=== PATIENT | female | born 1950 | race Caucasian/White ===

== ENCOUNTER 2016-07-16 20:34 | Observation (INO) | payer MEDICARE, OTHER ==
[~2016-07-16] VITALS: Ht 167.6 cm; Wt 56.5 kg
[~2016-07-16 20:34] MED LIST: CITA20TA4 PO; PARO20TA PO; SULF200S24 PO; TRIA0.02 TOP
[2016-07-16 20:40] VITALS: BP 136/72; PULSE 108; RESP 18; TEMP 99.6; O2SAT 96
[2016-07-16] MEDS ORDERED: LINA145C PO (20:52)
[2016-07-16] MEDS ORDERED: CLIN1CAP6 PO (20:52)
[2016-07-16] MEDS ORDERED: TRAZ50TA12 PO (20:52)
[2016-07-16] MEDS ORDERED: SODIUM CHLOR 0.9% 1000 ML INJ 1,000 ML IV SCH (21:06)
[2016-07-16] MEDS ORDERED: SODIUM CHLORIDE 0.9% FLUSH 5 ML FLUSH IVF PRN (21:15)
--- NOTE | 2016-07-16 21:30 | PD ---
HPI Chief Complaint: Altered Mental Status Time Seen by Provider: 20:41 Travel History International Travel<30 days: No Contact w/Intl Traveler<30days: No Traveled to known affect area: No History of Present Illness HPI Patient 66-year-old female presents emergency department by E [facility] for acute on chronic altered mental status. 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 According to family members patient was found bent over at the waist lying on her bed with her feet on the floor which is unusual for her. Apparently after that she was crawling around on all fours on the ground. Family is concerned because she has been having some constipation and some blood in the stools when she has bowel movements which causing the pain. They've also noticed an increased swelling of the right jaw. Patient is also been having some mild weight loss over the past 6 months or so. They have been following her primary care physician Dr. Solorio ordered a CAT scan of the head was they are unaware of the results of at this time. According to family members the patient is now at baseline mental status where she is nitrate and oriented to herself highly tangential. No fevers no abdominal pain was reported. Patient apparently has not had a bowel movement in about a week. PFSH Past Medical History Medical History: Unable to Obtain Arthritis: No Asthma: No Autoimmune Disease: No Anxiety: Yes Heart Rhythm Problems: No Cancer: Yes (colon, tonsil w/ lymph nodes) Cardiovascular Problems: No High Cholesterol: No Chemotherapy: Yes (15 YEARS AGO) Chest Pain: No Congestive Heart Failure: No COPD: No Cerebrovascular Accident: No Dementia: Yes (secondary to cancer treatment) Diabetes: No Diminished Hearing: No Endocrine: No GERD: No Genitourinary: No Headaches: Yes Hiatal Hernia: No Immune Disorder: No Kidney Stones: No Musculoskeletal: No Neurologic: Yes Psychiatric: Yes Reproductive: No Respiratory: No Migraines: Yes Radiation Therapy: Yes (13 years ago) Renal Failure: No Seizures: No Sickle Cell Disease: No Sleep Apnea: No Thyroid Disease: No Ulcer: No Past Surgical History Surgical History: Unable to Obtain Abdominal Surgery: Yes (colon resection secondary to cancer) AICD: No Arteriovenous Shunt: No Cardiac Surgery: No Ear Surgery: No Endocrine Surgery: No Eye Surgery: No Genitourinary Surgery: No Gynecologic Surgery: No Hysterectomy: Yes Insulin Pump: No Joint Replacement: No Oral Surgery: Yes (radical toncilectomy due ca.) Pacemaker: No Thoracic Surgery: No Tonsillectomy: Yes (radical removal secondary to cancer RIGHT) Other Surgery: Yes Social History Alcohol Use: Yes (occasional) Tobacco Use: No (quit ) Substance Use: No Allergies-Medications (Allergen,Severity, Reaction): Coded Allergies: Penicillin (Unverified Allergy, Unknown, 09/05/15) Reported Meds & Prescriptions Reported Meds & Active Scripts Active Reported Linzess (Linaclotide) 145 Mcg Cap 145 Mcg PO DAILY Clindamycin (Clindamycin HCl) 300 Mg Cap 300 Mg PO BID Trazodone (Trazodone HCl) 50 Mg Tab 50 Mg PO HS Review of Systems Except as stated in HPI: all other systems reviewed are Neg Physical Exam Narrative GENERAL: Well-developed well-nourished no apparent distress, pleasantly confused. SKIN: Warm and dry. HEAD: Atraumatic. Normocephalic. EYES: Pupils equal and round. No scleral icterus. No injection or drainage. ENT: No nasal bleeding or discharge. Mucous membranes pink and moist. There is some swelling to the right jaw line over the parotid gland. Nontender no overlying cellulitis, no fluctuance. NECK: Trachea midline. No JVD. CARDIOVASCULAR: Regular rate and rhythm. No murmur appreciated. RESPIRATORY: No accessory muscle use. Clear to auscultation. Breath sounds equal bilaterally. GASTROINTESTINAL: Abdomen soft, non-tender, nondistended. Hepatic and splenic margins not palpable. Rectal exam: Performed with female nurse nurse sitter at all times. Patient has a very high fecal impaction which was barely palpable for me. I have broken up the impaction is much as I can digitally but very little is able to be removed. Fecal occult is positive. No gross blood and no gross melena. MUSCULOSKELETAL: No obvious deformities. No clubbing. No cyanosis. No edema. NEUROLOGICAL: Awake and alert. Highly tangential speech, does follow commands in all 4 extremities. No obvious cranial nerve deficits. Motor grossly within normal limits. On asking orientation questions patient changes subject rapidly. She is GCS of 14 for confused response. PSYCHIATRIC: Pleasantly confused. Unable to assess further at this time. Data Data Last Documented VS Vital Signs Date Time Temp Pulse Resp B/P Pulse Ox O2 Delivery O2 Flow Rate FiO2 07/16/16 23:03 86 18 139/86 97 Room Air 07/16/16 20:40 99.6 Orders Electrocardiogram (07/16/16 ) Ammonia (07/16/16 21:06) Complete Blood Count With Diff (07/16/16 21:06) Comprehensive Metabolic Panel (07/16/16 21:06) Creatine Kinase (Cpk) (07/16/16 21:06) Prothrombin Time / Inr (Pt) (07/16/16 21:06) Act Partial Throm Time (Ptt) (07/16/16 21:06) Urinalysis - C+S If Indicated (07/16/16 21:06) Chest, Single Ap (07/16/16 21:06) Ct Brain W/O Iv Contrast(Rout) (07/16/16 21:06) Blood Glucose (07/16/16 21:) Ecg Monitoring (07/16/16 21:06) Iv Access Insert/Monitor (07/16/16 21:06) Oximetry (07/16/16 21:06) Sodium Chloride 0.9% Flush (Ns Flush) (07/16/16 21:15) Sodium Chlor 0.9% 1000 Ml Inj (Ns 1000 M (07/16/16 21:06) Cath For Specimen (07/16/16 21:06) CKMB (07/16/16:) CKMB% (07/16/16:) Ct Abd/Pel W Iv Contrast(Rout) (07/16/16 ) Iohexol 350 Inj (Omnipaque 350 Inj) (07/17/16 00:43) Admit Order (Ed Use Only) (07/17/16 ) Labs Laboratory Tests Test 07/16/16:17 White Blood Count 6.6 TH/MM3 Red Blood Count 4.62 MIL/MM3 Hemoglobin 13.0 GM/DL Hematocrit 38.7 % Mean Corpuscular Volume 83.8 FL Mean Corpuscular Hemoglobin 28.2 PG Mean Corpuscular Hemoglobin 33.7 % Concent Red Cell Distribution Width 14.7 % Platelet Count 268 TH/MM3 Mean Platelet Volume 9.8 FL Neutrophils (%) (Auto) 77.2 % Lymphocytes (%) (Auto) 16.1 % Monocytes (%) (Auto) 6.1 % Eosinophils (%) (Auto) 0.1 % Basophils (%) (Auto) 0.5 % Neutrophils # (Auto) 5.1 TH/MM3 Lymphocytes # (Auto) 1.1 TH/MM3 Monocytes # (Auto) 0.4 TH/MM3 Eosinophils # (Auto) 0.0 TH/MM3 Basophils # (Auto) 0.0 TH/MM3 CBC Comment DIFF FINAL Differential Comment Prothrombin Time 11.0 SEC Prothromb Time International 1.0 RATIO Ratio Activated Partial 28.5 SEC Thromboplast Time Urine Color YELLOW Urine Turbidity HAZY Urine pH 6.0 Urine Specific [place] 1.027 Urine Protein 30 mg/dL Urine Glucose (UA) NEG mg/dL Urine Ketones 150 mg/dL Urine Occult Blood TRACE Urine Nitrite NEG Urine Bilirubin NEG Urine Urobilinogen 2.0 MG/DL Urine Leukocyte Esterase NEG Urine RBC 6 /hpf Urine WBC 1 /hpf Urine Hyaline Casts 3 /lpf Urine Mucus MOD /lpf Microscopic Urinalysis Comment CATH-CULT NOT IND Sodium Level 138 MEQ/L Potassium Level 3.6 MEQ/L Chloride Level 102 MEQ/L Carbon Dioxide Level 25.0 MEQ/L Anion Gap 11 MEQ/L Blood Urea Nitrogen 6 MG/DL Creatinine 0.67 MG/DL Estimat Glomerular Filtration 88 ML/MIN Rate Random Glucose 116 MG/DL Calcium Level 8.7 MG/DL Total Bilirubin 0.5 MG/DL Aspartate Amino Transf 31 U/L (AST/SGOT) Alanine Aminotransferase 29 U/L (ALT/SGPT) Alkaline Phosphatase 74 U/L Ammonia 16 MCMOL/L Total Creatine Kinase 636 U/L Creatine Kinase MB 10.8 NG/ML Creatine Kinase MB % 1.7 % Total Protein 7.0 GM/DL Albumin 3.5 GM/DL [facility] Medical Decision Making Medical Screen Exam Complete: Yes Emergency Medical Condition: Yes Interpretation(s) EKG shows normal sinus rhythm normal axis normal R-wave progression. Limited interpretation of STT segments secondary to motion artifact over no obvious STT segment changes are seen. Is a borderline EKG. Differential Diagnosis GI bleeding, altered mental status, urinary tract infection, pneumonia, electrolyte abnormality, intracranial injury. Narrative Course Patient was roomed in the emergency department, she appears well and in no apparent distress. Has notable findings of her right jaw swelling which is increased over the past few months, also GI bleeding but H&H is within normal limits. UA is negative, chest x-ray negative. Patient at this time is at baseline mental status. Her symptoms of leaning over the bed could be attributed to her constipation but is not definitive. 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 No evidence of acute infarct, hemorrhage, mass or edema. Shar Mendosa MD Chest X-Ray 07/16/162105 Signed Impressions: Service Date/Time: Saturday, July 16, 2016 21:39 - CONCLUSION: No acute disease. Shar Mendosa MD Abdomen/Pelvis CT 07/16/16 0000 Signed Impressions: Service Date/Time: Sunday, July 17, 2016 00:40 - CONCLUSION: No acute CT findings in the abdomen or pelvis. Jasbir Sheikh MD Discuss results with the patient's family and they are very reluctant to take the patient home. Discussed with her GI bleeding which suggests observation status returning of H&H's and they're agreeable this time. Diagnosis Primary Impression: Altered mental status, unspecified Additional Impression: GI bleeding Admitting Information Admitting Physician Requests: Observation Condition: Stable Estuardo De La O MD Jul 16, 2016 21:30
--- NOTE | 2016-07-16 21:38 | RADRPT ---
EXAM DATE/TIME: 07/16/2016 21:21 [facility] COMPARISON: CT BRAIN W/O CONTRAST, September 05, 2015, 19:14. INDICATIONS : Altered mental status. RADIATION DOSE: 56.35 CTDIvol (mGy) MEDICAL HISTORY : Carcinoma, colon. Carcinoma, tonsillar. SURGICAL HISTORY : Colon resection. Tonsillectomy. ENCOUNTER: Initial ACUITY: 1 day PAIN SCALE: Non-responsive LOCATION: cranial TECHNIQUE: Multiple contiguous axial images were obtained of the head. Using automated exposure control and adj ustment of the mA and/or kV according to patient size, radiation dose was kept as low as reasonably a chievable to obtain optimal diagnostic quality images. FINDINGS: CEREBRUM: The ventricles are normal for age. No evidence of midline shift, mass lesion, hemorrhage or acute in farction. No extra-axial fluid collections are seen. POSTERIOR FOSSA: The cerebellum and brainstem are intact. The 4th ventricle is midline. The cerebellopontine angle i s unremarkable. EXTRACRANIAL: A calcified mass is identified along the angle and body of the right mandible. SKULL: The calvaria is intact. No evidence of skull fracture. 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 No evidence of acute infarct, hemorrhage, mass or edema. Shar Mendosa MD on July 16, 2016 at 21:32 Board Certified Radiologist. This report was verified electronically.
[2016-07-16 21:49] LABS: AUTOMATED NEUTROPHIL # 5.1 TH/MM3 (1.8-7.7); BASOPHIL % 0.5 % (0.0-2.0); EOSINOPHIL % 0.1 % (0.0-4.0); HEMATOCRIT 38.7 % (35.0-46.0); HEMO FLAGS DIFF FINAL; LYMPH % 16.1 % (9.0-44.0); LYMPHOCYTE # 1.1 TH/MM3 (1.0-4.8); MEAN CELL VOLUME 83.8 FL (80.0-100.0); MEAN CORPUSCULAR HEMOGLOBIN 28.2 PG (27.0-34.0); MEAN CORPUSCULAR HGB CONC 33.7 % (32.0-36.0); MONO % 6.1 % (0.0-8.0); NEUT % 77.2 % (16.0-70.0); PLATELET COUNT 268 TH/MM3 (150-450); RED BLOOD COUNT 4.62 MIL/MM3 (4.00-5.30); RED CELL DISTRIBUTION WIDTH 14.7 % (11.6-17.2); WHITE BLOOD COUNT 6.6 TH/MM3 (4.0-11.0)
[2016-07-16 21:51] LABS: BLOOD, URINE TRACE (NEG); GLUCOSE,URINE NEG (NEG); HYALINE CAST, URINE 3 /lpf (RARE); KETONE, URINE 150 mg/dL (NEG); MUCUS URINE MOD /lpf (OCC); NITRITE,URINE NEG (NEG); URINE COLOR YELLOW (YELLW/STRAW)
[2016-07-16 21:52] LABS: COMMENT (UR) CATH-CULT NOT IND; CULTURE IF INDICATED CATH CULTURE NOT IND
[2016-07-16 22:02] LABS: APTT (PATIENT) 28.5 SEC (24.3-30.1)
--- NOTE | 2016-07-16 22:05 | RADRPT ---
EXAM DATE/TIME: 07/16/2016 21:39 [facility] COMPARISON: CHEST SINGLE AP, November 16, 2014, 23:39. INDICATIONS : Shortness of breath. MEDICAL HISTORY : Unobtainable. SURGICAL HISTORY : Unobtainable. ENCOUNTER: Initial ACUITY: 1 day PAIN SCORE: 0/10 LOCATION: Bilateral chest FINDINGS: A single view of the chest demonstrates the lungs to be symmetrically aerated without evidence of mas s, infiltrate or effusion. The cardiomediastinal contours are unremarkable. Osseous structures are intact. CONCLUSION: No acute disease. Shar Mendosa MD on July 16, 2016 at 22:03 Board Certified Radiologist. This report was verified electronically.
[2016-07-16 22:09] LABS: ANION GAP 11 MEQ/L (5-15); AST (GOT) 31 U/L (15-37); BLOOD UREA NITROGEN 6 MG/DL (7-18); CHLORIDE 102 MEQ/L (98-107); GLOMERULAR FILTRATION RATE 88 ML/MIN (>89); POTASSIUM 3.6 MEQ/L (3.5-5.1); SODIUM (NA) 138 MEQ/L (136-145)
[2016-07-16 22:13] LABS: ALKALINE PHOSPHATASE 74 U/L (45-117); ALT (GPT) 29 U/L (10-53); CREATINE KINASE 636 U/L (26-192); TOTAL BILIRUBIN ADULT 0.5 MG/DL (0.2-1.0)
[2016-07-16 22:33] VITALS: O2SAT 99
[2016-07-16 22:35] LABS: CKMB 10.8 NG/ML (0.5-3.6)
[2016-07-16 23:03] VITALS: BP 139/86; PULSE 86; RESP 18; O2SAT 97
[2016-07-17] MEDS ORDERED: IOHEXOL 350 MG/ML 10 ML VIAL (for RAD DIAG) IV ONE (00:43)
--- NOTE | 2016-07-17 00:59 | RADRPT ---
EXAM DATE/TIME: 07/17/2016 00:40 [facility] COMPARISON: CT ABDOMEN & PELVIS W CONTRAST, November 17, 2014, 1:23. INDICATIONS : Abdominal pain. IV CONTRAST: 100 cc Omnipaque 350 (iohexol) IV ORAL CONTRAST: No oral contrast ingested. RADIATION DOSE: 7.41 CTDIvol (mGy) MEDICAL HISTORY : Carcinoma, colon. Carcinoma, tonsillar. SURGICAL HISTORY : Tonsillectomy. Colon resection. ENCOUNTER: Initial ACUITY: 1 day PAIN SCALE: 5/10 LOCATION: abdomen TECHNIQUE: Volumetric scanning of the abdomen and pelvis was performed. Using automated exposure control and ad justment of the mA and/or kV according to patient size, radiation dose was kept as low as reasonably achievable to obtain optimal diagnostic quality images. FINDINGS: LOWER LUNGS: The visualized lower lungs are clear. LIVER: Stable low densities in the dome of the liver. No evidence of biliary ductal dilatation. SPLEEN: Normal size without lesion. PANCREAS: Within normal limits. KIDNEYS: Stable right renal cyst. No evidence of hydronephrosis. ADRENAL GLANDS: Within normal limits. VASCULAR: At the carotid changes. No evidence of aneurysm. BOWEL/MESENTERY: The stomach, small bowel, and colon demonstrate no acute abnormality. There is no free intraperitone al air or fluid. There is abundant formed stool in the rectumABDOMINAL WALL: Within normal limits. RETROPERITONEUM: There is no lymphadenopathy. BLADDER: No wall thickening or mass. REPRODUCTIVE: Uterus is surgically absent. No evidence of pelvic mass or free fluid. INGUINAL: There is no lymphadenopathy or hernia. MUSCULOSKELETAL: Within normal limits for patient age. CONCLUSION: No acute CT findings in the abdomen or pelvis. Jasbir Sheikh MD on July 17, 2016 at 0:51 Board Certified Radiologist. This report was verified electronically.
[2016-07-17 03:04] VITALS: BP 125/84; PULSE 102; RESP 18; O2SAT 97
[2016-07-17] MEDS ORDERED: SODIUM CHLORIDE 0.9% FLUSH 5 ML FLUSH FLUSH PRN (03:15)
[2016-07-17] MEDS ORDERED: NALOXONE HCL 0.4 MG/ML AMP IV PRN (03:15)
[2016-07-17] MEDS ORDERED: BISACODYL 10 MG SUPP PR PRN (03:15)
[2016-07-17] MEDS ORDERED: ONDANSETRON HCL 4 MG/2 ML VIAL IVP PRN (03:15)
[2016-07-17] MEDS ORDERED: ACETAMINOPHEN 325 MG TAB PO PRN (03:15)
[2016-07-17] MEDS ORDERED: MAGNESIUM HYDROXIDE SUSP 30 ML CUP PO PRN (03:15)
[2016-07-17] MEDS ORDERED: SOD PHOSPHATE/SOD BIPHOSPHATE (ADULT) ENEMA 133ML PR ONE (04:15)
[2016-07-17] MEDS: SODIUM CHLOR 0.9% 1000 ML INJ 1,000 ML IV SCH ×2 (04:58→14:00)
[2016-07-17] MEDS: PANTOPRAZOLE SODIUM 40 MG VIAL IV PUSH SCH (04:58)
[2016-07-17 05:20] LABS: HEMATOCRIT 37.3 % (35.0-46.0); MEAN CELL VOLUME 83.9 FL (80.0-100.0); MEAN CORPUSCULAR HEMOGLOBIN 28.1 PG (27.0-34.0); MEAN CORPUSCULAR HGB CONC 33.5 % (32.0-36.0); PLATELET COUNT 265 TH/MM3 (150-450); RED BLOOD COUNT 4.45 MIL/MM3 (4.00-5.30); REVIEW FLAG FINAL; WHITE BLOOD COUNT 8.3 TH/MM3 (4.0-11.0)
[2016-07-17 07:29] VITALS: BP 120/66; PULSE 85; RESP 16; TEMP 98.1; O2SAT 98
--- NOTE | 2016-07-17 10:34 | MH ---
DATE OF ADMISSION: 07/17/2016 Admitting physician: SHABNAM ALCANTARA MD CHIEF COMPLAINT Altered mental status. HISTORY OF PRESENT ILLNESS The patient is a 66-year-old female who presented to the ER by [facility] for acute on chronic altered mental status. 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 According to family members, the patient was found bent over at the waistline on her bed with her feet on the floor which is unusual for her. Apparently, after that she was crawling around on all fours on the ground. Family is concerned because she has been having some constipation and some blood in the stool when she has bowel movements. They have also noticed an increased swelling of the right jaw. The patient has also been having some mild weight loss over the last six months or so. They have been following with her primary care physician, Dr. Solorio, who ordered a CAT scan of the head but the family does not know of the results at this time. According to family members, the patient is not at baseline mental status and oriented to herself. No fevers, no abdominal pain were reported. PAST MEDICAL HISTORY 1. Anxiety 2. Colon cancer. 3. 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 4. Dementia. 5. Headaches. PAST SURGICAL HISTORY 1. Colon surgery, colon resection secondary to cancer. 2. History of hysterectomy. 3. History of radical tonsillectomy with the cancer. SOCIAL HISTORY Occasional alcohol use. Quit smoking in . No illicit drug use. ALLERGIES PENICILLIN. CURRENT MEDICATIONS 1. Linzess 145 mcg capsule q.daily. 2. Clindamycin 300 mg capsule p.o. b.i.d. 3. Trazodone 50 mg p.o. q.h.s. REVIEW OF SYSTEMS Positive for altered mental status, constipation per family, blood in stools. No fever. No chest pain. No shortness of breath. Nausea present. PHYSICAL EXAMINATION GENERAL: The patient is well-developed, well-nourished, in no apparent distress, pleasantly confused. SKIN: Skin is warm and dry. HEAD: Head is atraumatic, normocephalic. EYES: Pupils are equal, round and reactive to light. No scleral icterus. No injection or drainage. ENT: No nasal bleeding or discharge. Mucous membranes pink and moist. There is some swelling to the right jawline over the parotid gland, nontender. No overlying cellulitis, no fluctuance. NECK: Trachea midline. No JVD. CARDIOVASCULAR: Regular, rate and rhythm. No murmur appreciated. RESPIRATORY: Clear to auscultation. Breath sounds equal bilaterally. No accessory muscle use. GASTROINTESTINAL: Abdomen is soft, nontender, nondistended. Hepatic and splenic margins not palpable. RECTAL: In the ER the rectal exam performed, showed very high fecal impaction Fecal occult was positive. No gross blood, no gross melena. MUSCULOSKELETAL: No obvious deformities. No clubbing, no cyanosis, no edema. NEUROLOGIC: Awake. Highly tangential speech. Does follow commands in all four extremities. No obvious cranial nerve deficits. Motor grossly within normal limits. Pleasantly confused. PSYCHIATRIC: Pleasantly confused. Unable to assess further at this time. VITAL SIGNS: Blood pressure 139/86, pulse ox 97% on room air, temperature is 99.6. LABORATORY DATA WBC 6.6, hemoglobin 13, hematocrit 38.7, platelets 268,000. Sodium 138, potassium 3.6, chloride 102, BUN 6, creatinine 0.67, AST 31, ALT 29. IMAGING Chest x-ray: No acute disease. 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 No evidence of acute infarct, hemorrhage, mass or edema. Abdomen and pelvis CT: No acute findings in the abdomen or pelvis. DIAGNOSTIC IMPRESSION 1. Altered mental status. 2. GI bleeding. 3. Right mandibular mass, questionable osteosarcoma. 4. Dementia. 5. History of colon cancer. 6. History of malignant neoplasm of tonsil. PLAN 1. We will admit the patient to medical unit. 2. Start the patient on IV fluids normal saline at 75 cc/hr. 3. We will consult blow molding machine tender, Dr. Mathias. 4. We will also check stool for C. Diff as the patient has recently been on Bactrim and clindamycin. 5. We will also request a CAT scan of the neck with contrast. 6. We will continue the home medications as appropriate. 7. We will start the patient empirically on Flagyl. 8. We will do DVT prophylaxis with SCDs. PUD prophylaxis with PPI. 9. We will monitor the patient closely during the hospital stay. Patient is acutely ill with altered mental status and GI bleeding. Will need a complete neurological and GI workup. Will need an inpatient stay of minimal three midnights and discharge to home when stable. Shabnam Alcantara MD [email or web address]
[2016-07-17] MEDS: metroNIDAZOLE 500 MG INJ 100 ML IV SCH ×2 (11:11→21:29)
[2016-07-17] MEDS: SODIUM CHLORIDE 0.9% FLUSH 5 ML FLUSH FLUSH SCH ×2 (11:12→20:18)
[2016-07-17 14:14] VITALS: BP 133/72; PULSE 88; RESP 16; TEMP 96.2; O2SAT 98
--- NOTE | 2016-07-17 15:23 | PD.CONS ---
HPI History of Present Illness This is a 66 year old female patient who was brought to the ER for evaluation of generalized weakness and lethargy. She has a hx of dementia and is unable to provide any history and therefore the history has been obtained from the EMR and her son who is at the bedside. He reports that she has a hx of tonsillar cancer about 15 years ago that was treated with radical tonsillectomy with radiation and chemotherapy. She then was treated for colon cancer about 5 years ago, treated with partial colon resection and chemotherapy- possibly radiation. She has since had a colonoscopy, although her son does not know when this was done and states she does not have a GI physician here locally. For the past several months, she has had right sided facial swelling. She went to the dentist, but she would not cooperate with the exam and they could not get a good look. It was suspected that perhaps she had an abscess and was treated with 2 rounds of antibiotics. However, the swelling worsened and she has not been taking much by the way of po. She has lost about 20 lbs over the past 3 weeks. She was seen by her primary care physician and had a CT scan of her neck/head as outpatient. She does have a long hx of intermittent constipation, for which she takes Linzess. Usually, this is well controlled, but her son reports that she has not had a bowel movement in 3 weeks and was having a small amount of bright red blood with bowel movements and straining. She had her CT on and her son reports that yesterday, she was very lethargic and not eating and therefore she was brought to the ER. She had a large bowel movement in the ER with a small amount of red blood noted. Since that time, she has had an additional 3 large bowel movements without any blood. She does not appear to have any tenderness on exam and her son denies her having any nausea, vomiting. (Leslee Fritz) PFSH Past Medical History Dementia Colon cancer, s/p resection, chemo, possible radiation 5 years ago Tonsillar cancer, s/p radical tonsillectomy, radiation, chemotherapy Headaches Anxiety Constipation. Past Surgical History Colon resection Hysterectomy Radical tonsillectomy (Leslee Fritz) Coded Allergies: Penicillin (Unverified Allergy, Unknown, 09/05/15) Medications Allergies Coded Allergies Type Severity Reaction Last Updated Verified Penicillin Allergy Unknown 09/05/15 No Active Scripts Medications Dose Route/Sig Days Date Category Linzess (Linaclotide) 145 Mcg Cap 145 Mcg PO DAILY 07/16/16 Reported Clindamycin (Clindamycin HCl) 300 Mg Cap 300 Mg PO BID 07/16/16 Reported Trazodone (Trazodone HCl) 50 Mg Tab 50 Mg PO HS 07/16/16 Reported Family History Unable to obtain Social History Occasional ETOH Quit smoking in 1979 (Leslee Fritz) Review of Systems Constitutional: COMPLAINS OF: Fatigue, Weight loss, Change in appetite Respiratory: DENIES: Cough Cardiovascular: DENIES: Chest pain Gastrointestinal: COMPLAINS OF: Bloody stools (bright red blood per rectum), Constipation, Anorexia, DENIES: Abdominal pain, Black stools, Diarrhea, Nausea , Vomiting, Swelling of Abdomen Neurologic: COMPLAINS OF: Headache Psychiatric: COMPLAINS OF: Anxiety, Confusion ROS Unable to obtain from patient, ROS from son (Leslee Fritz) GI Exam Vitals I&O Vital Signs Date Time Temp Pulse Resp B/P Pulse Ox O2 Delivery O2 Flow Rate FiO2 07/17/16 14:14 96.2 88 16 133/72 98 07/17/16 07:29 98.1 85 16 120/66 98 07/17/16 03:04 102 18 125/84 97 Room Air 07/16/16 23:03 86 18 139/86 97 Room Air 07/16/16 22:33 99 Room Air 07/16/16 20:41 108 18 96 Room Air 07/16/16 20:40 99.6 108 18 136/72 96 Imaging Last Impressions Head CT 07/16/162105 Signed Impressions: Service Date/Time: Saturday, July 16, 2016 21:21 - CONCLUSION: 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 No evidence of acute infarct, hemorrhage, mass or edema. Shar Mendosa MD Chest X-Ray 07/16/162105 Signed Impressions: Service Date/Time: Saturday, July 16, 2016 21:39 - CONCLUSION: No acute disease. Shar Mendosa MD Abdomen/Pelvis CT 07/16/16 0000 Signed Impressions: Service Date/Time: Sunday, July 17, 2016 00:40 - CONCLUSION: No acute CT findings in the abdomen or pelvis. Jasbir Sheikh MD Laboratory Test 07/16/16 07/17/16 21:17 04:25 White Blood Count 6.6 TH/MM3 8.3 TH/MM3 Red Blood Count 4.62 MIL/MM3 4.45 MIL/MM3 Hemoglobin 13.0 GM/DL 12.5 GM/DL Hematocrit 38.7 % 37.3 % Mean Corpuscular Volume 83.8 FL 83.9 FL Mean Corpuscular Hemoglobin 28.2 PG 28.1 PG Mean Corpuscular Hemoglobin 33.7 % 33.5 % Concent Red Cell Distribution Width 14.7 % 15.0 % Platelet Count 268 TH/MM3 265 TH/MM3 Mean Platelet Volume 9.8 FL 9.9 FL Neutrophils (%) (Auto) 77.2 % Lymphocytes (%) (Auto) 16.1 % Monocytes (%) (Auto) 6.1 % Eosinophils (%) (Auto) 0.1 % Basophils (%) (Auto) 0.5 % Neutrophils # (Auto) 5.1 TH/MM3 Lymphocytes # (Auto) 1.1 TH/MM3 Monocytes # (Auto) 0.4 TH/MM3 Eosinophils # (Auto) 0.0 TH/MM3 Basophils # (Auto) 0.0 TH/MM3 CBC Comment DIFF FINAL Differential Comment Prothrombin Time 11.0 SEC Prothromb Time International 1.0 RATIO Ratio Activated Partial 28.5 SEC Thromboplast Time Urine Color YELLOW Urine Turbidity HAZY Urine pH 6.0 Urine Specific [place] 1.027 Urine Protein 30 mg/dL Urine Glucose (UA) NEG mg/dL Urine Ketones 150 mg/dL Urine Occult Blood TRACE Urine Nitrite NEG Urine Bilirubin NEG Urine Urobilinogen 2.0 MG/DL Urine Leukocyte Esterase NEG Urine RBC 6 /hpf Urine WBC 1 /hpf Urine Hyaline Casts 3 /lpf Urine Mucus MOD /lpf Microscopic Urinalysis Comment CATH-CULT NOT IND Sodium Level 138 MEQ/L Potassium Level 3.6 MEQ/L Chloride Level 102 MEQ/L Carbon Dioxide Level 25.0 MEQ/L Anion Gap 11 MEQ/L Blood Urea Nitrogen 6 MG/DL Creatinine 0.67 MG/DL Estimat Glomerular Filtration 88 ML/MIN Rate Random Glucose 116 MG/DL Calcium Level 8.7 MG/DL Total Bilirubin 0.5 MG/DL Aspartate Amino Transf 31 U/L (AST/SGOT) Alanine Aminotransferase 29 U/L (ALT/SGPT) Alkaline Phosphatase 74 U/L Ammonia 16 MCMOL/L Total Creatine Kinase 636 U/L Creatine Kinase MB 10.8 NG/ML Creatine Kinase MB % 1.7 % Total Protein 7.0 GM/DL Albumin 3.5 GM/DL Physical Examination HEENT: Large right sided facial mass CHEST: CTA CARDIAC: RRR ABDOMEN: Soft, nondistended, nontender; no hepatosplenomegaly; bowel sounds are present in all four quadrants. EXTREMITIES: No clubbing, cyanosis, or edema. SKIN: Normal; no rash; no jaundice. CROWN BLOCKER: No focal deficits; alert confused (Leslee Fritz) Assessment and Plan Plan ASSESSMENT: - BRBPR. Has hx of colon cancer, s/p resection/chemo/possible radiation 5 years ago. She has since had a colonoscopy, but family does not know when and states she does not have a GI physician here locally. She has chronic constipation and son reports that she did not have a bowel movement in 3 weeks. She had a large bowel movement last night with small amount of brpbr, but has since had 3 more large bowel movements without blood. Abdomen/Pelvis CT (07/16/16)-----> No acute CT findings in the abdomen or pelvis. HH stable at 12.5/37.3. - Constipation. Takes Linzess at home. This has recently worsened. Family reports no bm x 3 weeks. Has since had a total of [address] as above. - Abnormal wt. loss, anorexia. 20 lb weight loss. States it started with the onset of the facial mass and has been worsening as this has enlarged. - Right sided facial mass. 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 No evidence of acute infarct, hemorrhage, mass or edema. Pt has hx of tonsillar cancer, s/p resection, chemo, rdx 15 years ago. - Hx colon cancer 5 years ago. S/P resection, chemo, possible rdx. - Generalized weakness, fatigue, worse since CT scan according to son. - Dementia per primary PLAN: - Clear liquids - Monitor HH - Miralax 17gram po daily - MOM, Dulcolax as needed - Await workup of right sided facial mass - At this time, she is not having any active bleeding and likely would not be able to tolerate the bowel prep for colonoscopy (son reports that she has only been able to take small sips at a time secondary to the mass). Will consider endoscopic evaluation after her facial mass is addressed, sooner if there is signs of active bleeding. - Pt seen and examined by Dr. Garza and myself and this note is written on his behalf (Leslee Fritz) Physician Comments Patient seen and examined Agree with above Continue with current supportive care Monitor labs At this point in time there is no active bleeding and the patient is stable hemodynamically Will await workup of her facial mass prior to pursuing colonoscopy (Ramon Garza MD) Leslee Fritz Jul 17, 2016 15:23 Ramon Garza MD Jul 17, 2016 18:43
[2016-07-17] MEDS: POLYETHYLENE GLYCOL 17 GM PKG PO SCH (15:30)
--- NOTE | 2016-07-17 19:10 | EKG ---
Date Performed: 07/16/2016 Time Performed: 20:56:23 PTAGE: 66 years EKG: Sinus rhythm POSSIBLE LEFT ATRIAL ENLARGEMENT Since previous tracing, no significant change noted BORDERLINE ECG PREVIOUS TRACING : 09/05/2015 18.57 DOCTOR: Bud Rocha Interpretating Date/Time 07/17/2016 19:09:08
[2016-07-17 20:00] VITALS: BP 140/69; PULSE 77; RESP 17; TEMP 96.4; O2SAT 98
[2016-07-18] VITALS (7 sets, daily range): BP systolic 124–154; BP diastolic 67–94; PULSE 62–110; RESP 17–20; TEMP 96.7–99.2; O2SAT 97–99
[2016-07-18] MEDS: PANTOPRAZOLE SODIUM 40 MG VIAL IV PUSH SCH (02:59)
[2016-07-18] MEDS: POLYETHYLENE GLYCOL 17 GM PKG PO SCH (08:05)
[2016-07-18 08:15] LABS: AUTOMATED NEUTROPHIL # 2.9 TH/MM3 (1.8-7.7); BASOPHIL % 0.7 % (0.0-2.0); EOSINOPHIL # 0.1 TH/MM3 (0-0.4); EOSINOPHIL % 1.4 % (0.0-4.0); HEMO FLAGS DIFF FINAL; LYMPH % 30.1 % (9.0-44.0); LYMPHOCYTE # 1.5 TH/MM3 (1.0-4.8); MEAN CELL VOLUME 83.3 FL (80.0-100.0); MEAN CORPUSCULAR HEMOGLOBIN 28.3 PG (27.0-34.0); MONO % 9.4 % (0.0-8.0); NEUT % 58.4 % (16.0-70.0); PLATELET COUNT 225 TH/MM3 (150-450); RED CELL DISTRIBUTION WIDTH 14.7 % (11.6-17.2)
[2016-07-18 08:31] LABS: BICARBONATE 26.6 MEQ/L (21.0-32.0)
[2016-07-18] MEDS: SODIUM CHLORIDE 0.9% FLUSH 5 ML FLUSH FLUSH SCH ×2 (09:00→21:00)
[2016-07-18] MEDS: metroNIDAZOLE 500 MG INJ 100 ML IV SCH ×2 (09:25→21:55)
[2016-07-18] MEDS ORDERED: POTASSIUM CL 40 MEQ/30 ML LIQ UDC PO ONE (16:15)
--- NOTE | 2016-07-18 16:46 | HHI.PR ---
Subjective Subjective Remarks Pleasantly demented Holding a doll, thinks is her baby right mandibular mass non tender tolerating clear liquid diet well has no complaint when asked brother and DIL at [facility], multiple questions asked Review of Systems Constitutional Constitutional Remarks Unable to obtain ROS Vitals/Results Intake & Output 07/17/16 07/17/16 07/18/16 15:00 23:00 07:00 Intake Total 190 ml 231 ml Balance 190 ml 231 ml Intake Oral 190 ml IV Total 231 ml # Voids 3 2 # Bowel Movements 0 Vital Signs Vital Signs Date Time Temp Pulse Resp B/P Pulse Ox O2 Delivery O2 Flow Rate FiO2 07/18/16 13:46 99.2 84 18 152/70 98 07/18/16 08:00 97.2 110 20 149/67 97 07/18/16 04:00 96.8 62 19 138/67 98 07/18/16 00:00 96.7 71 17 136/67 98 07/17/16 20:00 96.4 77 17 140/69 98 CBC/BMP: 07/18/16 0750 07/18/16 0750 Lab Results Laboratory Tests Test 07/18/16 07:50 White Blood Count 5.0 TH/MM3 Red Blood Count 4.20 MIL/MM3 Hemoglobin 11.9 GM/DL Hematocrit 35.0 % Mean Corpuscular Volume 83.3 FL Mean Corpuscular Hemoglobin 28.3 PG Mean Corpuscular Hemoglobin 34.0 % Concent Red Cell Distribution Width 14.7 % Platelet Count 225 TH/MM3 Mean Platelet Volume 9.1 FL Neutrophils (%) (Auto) 58.4 % Lymphocytes (%) (Auto) 30.1 % Monocytes (%) (Auto) 9.4 % Eosinophils (%) (Auto) 1.4 % Basophils (%) (Auto) 0.7 % Neutrophils # (Auto) 2.9 TH/MM3 Lymphocytes # (Auto) 1.5 TH/MM3 Monocytes # (Auto) 0.5 TH/MM3 Eosinophils # (Auto) 0.1 TH/MM3 Basophils # (Auto) 0.0 TH/MM3 CBC Comment DIFF FINAL Differential Comment Sodium Level 141 MEQ/L Potassium Level 3.0 MEQ/L Chloride Level 104 MEQ/L Carbon Dioxide Level 26.6 MEQ/L Anion Gap 10 MEQ/L Blood Urea Nitrogen 3 MG/DL Creatinine 0.55 MG/DL Estimat Glomerular Filtration 110 ML/MIN Rate Random Glucose 88 MG/DL Calcium Level 8.3 MG/DL Physical Exam General General Appearance: No Acute Distress, Comfortable Eyes Eye Exam: Pupils Equal, Pupils Reactive Throat Throat Exam: Oral Mucosa [place] & Moist Neck Neck Remarks Firm, nontender large mandibular mass Pulmonary Resp Exam: Clear Bilaterally Cardiology CV Exam: Regular, Good Perfusion Gastrointestinal/Abdomen GI Exam: Soft, Non-Tender, Bowel Sounds Present, Non-Distended Musculoskeletal MS Exam: Joints Intact Integumentary Skin Exam: Warm, Dry Extremeties Extremities Exam: No Edema, Pedal Pulses Palpable Neurologic Neuro Exam: Awake, Speech Clear, Moving All Extremities, No Focal Deficits Psychiatric Psych Remarks demented VTE Prophylaxis VTE Prophylaxis Device: SCDs PUD Prophylasis PUD Prophylaxis: Protonix Assessment/Plan Problem List: (1) Altered mental status, unspecified (2) BRBPR (bright red blood per rectum) (3) right mandibullar mass possible osteosarcoma (4) Physical debility (5) Weight loss (6) Weakness (7) Hx of tongue cancer (8) Anorexia (9) History of colon cancer (10) Dementia (11) Constipation Assessment/Plan no blood in stool while in hospital no more diarrhea consider stopping Flagyl appreciate GI input no work up at this time monitor HH has chronic constipation, continue with bowel regimen, has had a couple of BMs no blood noted GI recommends to pursue endoscopic workup after right mandibular mass workup completed Right mandibular mass, with prior history of tongue cancer with radiation chemotherapy 15 years ago, colon cancer 5 years ago with chemotherapy and resection Imaging studies reviewed, possible osteosarcoma Oncology consultation pending We will obtain medical records from hospital in [place] where she had treatment for colon cancer Discussed with family at length, questions answered in detail. Recommend to maintain realistic expectations as patient has poor functional status. Daughter in law indicated that they would not want anymore radiation due to her progressive dementia that supposedly was caused by radiation that was done when she had the tongue cancer Replace potassium Continue with cautious hydration Continue with clear liquid diet Swallow evaluation and advance diet as tolerated Consult physical therapy and occupational therapy for evaluation Okay for out of bed with assistance Fall precautions Case management consultation for discharge planning, family requesting SNF placement. They have been arranging eventual placement in dementia unit as she requires more care/supervision. Home medications reviewed, initiated as indicated SCDs for DVT prophylaxis Protonix for GI prophylaxis Labs reviewed stable Overall poor prognosis, poor functional status. Not likely to tolerate any treatment D/W RN D/W pt's family at length D/W Dr. Crump D/W Dr. Patrick This patient was seen by myself and Dr. Patrick, this note is written on her behalf Problem Qualifiers (1) Dementia: (2) Constipation: Qualified Code: K59.00 - Constipation, unspecified constipation type Pratibha Lopez Jul 18, 2016 16:46
--- NOTE | 2016-07-18 17:08 | HHI.GIFU ---
Subjective Remarks Resting in bed. Per family, taking more by mouth today. No active gi bleeding. (Leslee Fritz) Objective Vitals I&O Vital Signs Date Time Temp Pulse Resp B/P Pulse Ox O2 Delivery O2 Flow Rate FiO2 07/18/16 13:46 99.2 84 18 152/70 98 07/18/16 08:00 97.2 110 20 149/67 97 07/18/16 04:00 96.8 62 19 138/67 98 07/18/16 00:00 96.7 71 17 136/67 98 07/17/16 20:00 96.4 77 17 140/69 98 I/O 07/17/16 07/17/16 07/17/16 07/18/16 07/18/16 07/18/16 07:00 15:00 23:00 07:00 15:00 23:00 Intake Total 190 ml 231 ml 260 ml Output Total 200 ml Balance 190 ml 231 ml 60 ml Intake Oral 190 ml 260 ml IV Total 231 ml Output Urine Total 200 ml # Voids 1 3 2 5 # Bowel Movements 1 0 Laboratory Laboratory Tests Test 07/18/16 07:50 White Blood Count 5.0 Red Blood Count 4.20 Hemoglobin 11.9 Hematocrit 35.0 Mean Corpuscular Volume 83.3 Mean Corpuscular Hemoglobin 28.3 Mean Corpuscular Hemoglobin 34.0 Concent Red Cell Distribution Width 14.7 Platelet Count 225 Mean Platelet Volume 9.1 Neutrophils (%) (Auto) 58.4 Lymphocytes (%) (Auto) 30.1 Monocytes (%) (Auto) 9.4 Eosinophils (%) (Auto) 1.4 Basophils (%) (Auto) 0.7 Neutrophils # (Auto) 2.9 Lymphocytes # (Auto) 1.5 Monocytes # (Auto) 0.5 Eosinophils # (Auto) 0.1 Basophils # (Auto) 0.0 CBC Comment DIFF FINAL Differential Comment Sodium Level 141 Potassium Level 3.0 Chloride Level 104 Carbon Dioxide Level 26.6 Anion Gap 10 Blood Urea Nitrogen 3 Creatinine 0.55 Estimat Glomerular Filtration 110 Rate Random Glucose 88 Calcium Level 8.3 Imaging Last Impressions Head CT 07/16/16 2109 Signed Impressions: Service Date/Time: Saturday, July 16, 2016 21:21 - CONCLUSION: 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 No evidence of acute infarct, hemorrhage, mass or edema. Shar F. Deondre, MD Chest X-Ray 07/16/166 Signed Impressions: Service Date/Time: Saturday, July 16, 2016 21:39 - CONCLUSION: No acute disease. Shar Mendosa MD Abdomen/Pelvis CT 07/16/16 0000 Signed Impressions: Service Date/Time: Sunday, July 17, 2016 00:40 - CONCLUSION: No acute CT findings in the abdomen or pelvis. Jasbir Sheikh MD Physical Exam HEENT: Large right sided facial mass CHEST: CTA CARDIAC: RRR ABDOMEN: Soft, nondistended, nontender; no hepatosplenomegaly; bowel sounds are present in all four quadrants. EXTREMITIES: No clubbing, cyanosis, or edema. SKIN: Normal; no rash; no jaundice. CONTROL CHEMIST: No focal deficits; alert confused (FritzLeslee Yasmin NICOLE) Assessment and Plan Plan ASSESSMENT: - BRBPR. Has hx of colon cancer, s/p resection/chemo/possible radiation 5 years ago. She has since had a colonoscopy, but family does not know when and states she does not have a GI physician here locally. She has chronic constipation and son reports that she did not have a bowel movement in 3 weeks. She had a large bowel movement last night with small amount of brpbr, but has since had 3 more large bowel movements without blood. Abdomen/Pelvis CT (07/16/16)-----> No acute CT findings in the abdomen or pelvis. No further bleeding. HH stable at 11.9/35.0. - Constipation. Takes Linzess at home. This has recently worsened. Family reports no bm x 3 weeks. Has since had a total of [address] as above. Miralax. - Abnormal wt. loss, anorexia. 20 lb weight loss. States it started with the onset of the facial mass and has been worsening as this has enlarged. - Right sided facial mass. 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 No evidence of acute infarct, hemorrhage, mass or edema. Pt has hx of tonsillar cancer, s/p resection, chemo, rdx 15 years ago. Oncology consulted. - Hx colon cancer 5 years ago. S/P resection, chemo, possible rdx. - Generalized weakness, fatigue, worse since CT scan according to son. - Dementia per primary PLAN: - Clear liquids - Monitor HH - Miralax 17gram po daily - MOM, Dulcolax as needed - Await workup of right sided facial mass - At this time, she is not having any active bleeding and likely would not be able to tolerate the bowel prep for colonoscopy (son reports that she has only been able to take small sips at a time secondary to the mass). Will consider endoscopic evaluation after her facial mass is addressed, sooner if there is signs of active bleeding. GI will sign off, please reconsult as needed - Pt seen and examined by Dr. Garza and myself and this note is written on his behalf (Leslee Fritz) Physician Comments Patient Seen and examined Agree with above Continue with current supportive care Monitor labs At this point, Marek from a GI perspective we will sign off but please reconsult if there is any active bleeding or once the patient is perceived to tolerate colonoscopy prep (Ramon Garza MD) Leslee Fritz Jul 18, 2016 17:08 Ramon Garza MD Jul 18, 2016 19:39
[2016-07-18] MEDS: SODIUM CHLOR 0.9% 1000 ML INJ 1,000 ML IV SCH ×2 (17:10→21:53)
--- NOTE | 2016-07-18 19:01 | MB ---
cc: SUGEY LOVE MD, LUTHER DATE OF CONSULTATION: 07/18/2016. HEMATOLOGY/ONCOLOGY CONSULTATION NOTE REQUESTING PHYSICIAN: Consult requested by the Hospitalist Service. REASON FOR CONSULTATION: Mass involving the right jaw; imaging findings concerning for a neoplasm such as osteosarcoma. The oncology service has been consulted for further workup and management recommendations. CHIEF COMPLAINT: Ms. Valdez herself is a poor communicator. She has advanced dementia. She is alert and oriented only to person but not to time, place or situation. Most of the history was obtained from the electronic medical records, from the nursing staff and from the patient's son, Sudhakar, whom I called and spoke to. Per the patient's son, Ms. Valdez was brought into the hospital after she was noted by her caregivers to be increasingly agitated and uncomfortable. The patient was also noted to have an enlarging mass involving her right cheek. HISTORY OF PRESENT ILLNESS: Ms. Valdez is a 66-year-old female who is originally from [place]. The patient has progressively advancing dementia to the point where she requires klmojm-[id number] assistant in nursing care. She is unable to perform her activities of daily living. One of her sons lives next door and is her power of city attorney. The patient herself is , she lost her about a year ago. Prior to her 's demise, he was her primary caregiver. Ms. 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 This was treated along the [facility] with chemotherapy and radiation. The patient's cancer went into remission and to the best of their knowledge she had followed up regularly without evidence of recurrence. The patient's son reports the patient's memory and cognitive function has been declining steadily ever since she completed chemoradiotherapy for the "throat cancer" and they think the chemotherapy and radiation may have played a role. I do not have her records from the original treatment to review. But these have been requested. Additionally in 2009, Ms. Valdez was diagnosed with an adenocarcinoma of the colon, she underwent primary resection and following that has been on observation alone. She was not treated with adjuvant systemic chemotherapy. Over the past two months, the patient's family has noted an enlarging mass along the right cheek. The patient has had increasing difficulty opening her mouth and eating, the patient because of this has been losing weight and has been increasingly frail. The son and the patient's family and caregivers have also noted a worsening of her dementia over this period time. Over the past month and a half, the patient has seen various physicians and dentists who have recommended antibiotics for management of what they assessed to have been an infected tooth. None of these interventions seemed to work. The patient was brought into the emergency department yesterday for further workup and evaluation. 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 There was no lymphadenopathy noted and no acute intracranial findings identified. PAST MEDICAL HISTORY: 1. Dementia. 2. History of head and neck cancer in 2001. 3. Adenocarcinoma of the colon diagnosed and treated in 2009. PAST SURGICAL HISTORY: 1. Biopsy of throat cancer. 2. Radical tonsillectomy for the throat cancer. 3. History of hysterectomy. 4. Colon resection. SOCIAL HISTORY: She is , she lives at home with 24-hour nursing and medical staff coordinator care. She was a former smoker per the patient's family but quit in the . ALLERGIES: PENICILLIN. MEDICATIONS: Current inpatient medications: 1. Trazodone 50 milligrams p.o. at bedtime. 2. MiraLax 17 grams p.o. daily. 3. Metronidazole 500 milligrams IV q. 12. 4. Normal saline 50 cc/hour. 5. Colace 10 milligrams per rectum as needed for constipation. 6. Zofran 4 milligrams IV q. 6 hours as needed for nausea and vomiting. 7. Pantoprazole 40 milligrams IV q. 24. REVIEW OF SYSTEMS: Unable to obtain from the patient who is not oriented to person, place or time. When asked if she is in pain, she told me she thinks she might be. When asked to open her mouth, she says she her jaw hurts, she is unable to open her mouth. She denies pain in the abdomen. Denies difficulty breathing. Denies headaches and denies bleeding. PHYSICAL EXAMINATION: VITAL SIGNS: Temperature 99.3 degrees Fahrenheit, heart rate 84 beats per minute, respiratory rate 18, blood pressure 152/70, 02 saturations are 98% on room air. GENERAL PHYSICAL APPEARANCE: Ms. Valdez is an elderly female, she is laying in bed. She has soft wrist restraints on. She is playing with a doll and is cradling it in her arms as if it was her own child. She is very pleasant. She smiles. She speaks very fluently but is not oriented. HEAD, EYES, EARS, NOSE, THROAT: Head is atraumatic and normocephalic. Conjunctivae are non-pale. The sclerae are anicteric. Extraocular muscles intact. Pupils equal, round and reactive to light and accommodation. ORAL EXAM: She has a protuberance along the right cheek. She is unable to open her mouth beyond a 1 cm. On palpation of the internal surface of the right cheek, a large mass is noted. NECK EXAM: No palpable cervical or supraclavicular lymphadenopathy. RESPIRATORY EXAM: Good air movement bilaterally. No added breath sounds. CARDIOVASCULAR EXAM: Regular rate and rhythm. S1 plus S2. No obvious murmurs, rubs or gallops. ABDOMINAL EXAM: Thin belly. Soft, nontender and nondistended. No palpable organ enlargement. LOWER EXTREMITIES: No pretibial edema. No calf tenderness. MASTER CONTROL OPERATOR: No focal sensory or motor deficits, though she is generally weak. MUSCULOSKELETAL: Decreased muscle mass and tone. LABORATORY FINDINGS: Blood work dated 07/18/2016: WBC count 5, hemoglobin 11.9, hematocrit 35%, platelet count 225,000, absolute neutrophil count 2.9. Chemistries: Sodium 141, potassium 3, chloride 104, bicarb 26.6, BUN 3, creatinine 0.55, eGFR 110, calcium 8.3. Creatine kinase 663, CK-MB 10.6. Ammonia 16, albumin 3.5, total protein 7, AST 31, ALT 29, alkaline phosphatase 74. Coags date 07/16/2016: PT 11, INR 1, PTT 28.5. 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 CT scan of the abdomen and pelvis dated 07/16/2016: No acute CT findings in the abdomen or pelvis. She does have hypodensities in the dome of the liver, which are stable and unchanged. ASSESSMENT: Ms. Valdez is a 66-year-old female with advanced dementia. She presented to the hospital for further workup and evaluation of an enlarging mass involving the right side of her jaw, consequent to this she had not been able to eat and was losing weight. She is unable to express any specific complaints herself due to her neurocognitive deficits but her son and auflnapm-uy-jve report that the patient has been declining steadily over the past eight weeks. Imaging studies of the patient's head indicate a large mass involving the right mandible. The radiographic findings are most consistent with a malignant neoplasm. RECOMMENDATIONS: 1. Large right mandibular mass with imaging findings concerning for an osteosarcoma: I would recommend a CT-guided biopsy at this time. I did talk to the patient's son, Sudhakar, about Ms. Valdez's overall poor performance status and poor neurocognitive functional level. I explained to him that the first step in evaluation will be to biopsy the lesion in question so we may formalize a diagnosis. If indeed we establish a diagnosis of a neoplasm, whether an epithelial cancers or a sarcoma, her treatment options may be quite limited due to her poor functional and neurocognitive status. The family, however, would like to proceed with an initial workup, which I think it is perfectly acceptable and appropriate. They also tell me they have no unrealistic expectations about heroic surgical interventions or treatment interventions should a cancer diagnosis be established. I therefore requested an interventional radiology / CT-guided biopsy of the right mandibular mass. The patient will be made NPO after midnight. Her son, who is the power of city attorney, will be the one to consent. MD TAHIR Richardson/TERELL /6:21 PM /6:42 PM
[2016-07-18] MEDS: traZODone HCL 50 MG TAB PO SCH (21:54)
[2016-07-19] MEDS: PANTOPRAZOLE SODIUM 40 MG VIAL IV PUSH SCH (03:30)
[2016-07-19 04:00] VITALS: BP 129/75; PULSE 80; RESP 18; TEMP 97.8; O2SAT 97
[2016-07-19 07:50] VITALS: BP 133/79; PULSE 71; RESP 20; TEMP 95.7; O2SAT 98
[2016-07-19] MEDS: metroNIDAZOLE 500 MG INJ 100 ML IV SCH (08:43)
[2016-07-19] MEDS: SODIUM CHLORIDE 0.9% FLUSH 5 ML FLUSH FLUSH SCH ×2 (08:44→22:29)
[2016-07-19] MEDS: POLYETHYLENE GLYCOL 17 GM PKG PO SCH (08:44)
--- NOTE | 2016-07-19 08:47 | MB ---
cc: ANGELICA TRISTAN DATE OF CONSULTATION: 07/19/2016 HISTORY OF PRESENT ILLNESS The patient is a 66-year-old woman who came in for acute on chronic change in mental status. She has significant dementia, evidently Alzheimer's disease according to the chart. She had chemotherapy. Bent over at the waist on her bed, feet on the floor, crawling around all fours on the ground, constipation, blood in the stool, increased swelling in the right jaw. Baseline she is oriented to herself. PAST MEDICAL HISTORY 1. Anxiety. 2. Colon cancer. 3. 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 4. Dementia. 5. Headaches. 6. Colon resection. 7. Radical tonsillectomy with cancer. SOCIAL HISTORY Occasional drinker. Does not smoke since the . No drug use. ALLERGIES Allergic to PENICILLIN. MEDICATIONS Medications at home: 1. Trazodone 50 q.h.s. 2. Clindamycin. 3. Linzess. REVIEW OF SYSTEMS Cannot really get from her due to her dementia. CT scan, however, has shown in the right mandibular region possible osteosarcoma. SOCIAL HISTORY Evidently her son lives next door. She has been for a year. PHYSICAL EXAMINATION VITAL SIGNS: Afebrile. 80, 18, 129/75. NECK: No carotid bruits. She has some obvious changes about the cervical soft tissue of the neck from surgery and radiation in the past. She does have a large nontender mass in the right parotid mandibular region. NEUROLOGIC: Visual prince are full. Pupils are equal. Extraocular movements intact without nystagmus. She counted fingers well. She knew her name but did not know where she was or the city she lived in. She is not aphasic. She moved all of her upper and lower extremities bilaterally normal. She felt discomfort throughout normally. Toes are downgoing bilaterally. LABORATORY CBC was normal. UA essentially unremarkable. Basic metabolic profile was normal. LFTs normal. CPK was 600. Albumin norml. TSH normal. Coags normal. IMAGING She had a cervical spine CT in 2014 which was negative for fracture. Abdominal CT here was negative. CAT scan of the brain: I reviewed the CT, shows some diffuse atrophy, some slightly prominent ventricles but not does not appear to be NPH. Central and cortical atrophy is noted. IMPRESSION AND RECOMMENDATIONS Alzheimer's dementia, severe. We could consider some Namenda on her. I will have the family call me to see what they checked before. We can check an EEG on her here. See if she has been followed by neurology outpatient. She had a good night, was not too agitated overnight as far as we know according to the nurse. Will have physical therapy see her as she evidently had a pelvic fracture a few months back, family wanted some rehab. I will be following her with you in the hospital. MD MAAME Mayfield/EMILIO /8:10 AM 8:31 AM
--- NOTE | 2016-07-19 10:21 | HHI.PR ---
Subjective Subjective Remarks Pleasantly demented calm overnight unable to obtain ROS son at bsd Review of Systems Constitutional Constitutional Remarks Unable to obtain ROS Vitals/Results Intake & Output 07/18/16 07/18/16 07/19/16 15:00 23:00 07:00 Intake Total 260 ml 60 ml 2046 ml Output Total 200 ml Balance 60 ml 60 ml 2046 ml Intake Oral 260 ml 60 ml 120 ml IV Total 1926 ml Output Urine Total 200 ml # Voids 5 2 2 # Bowel Movements 0 0 Vital Signs Vital Signs Date Time Temp Pulse Resp B/P Pulse Ox O2 Delivery O2 Flow Rate FiO2 07/19/16 07:50 95.7 71 20 133/79 98 07/19/16 04:00 97.8 80 18 129/75 97 07/18/16 23:56 98.9 79 18 124/74 97 07/18/16 20:00 98.9 76 17 140/74 97 07/18/16 16:00 97.0 106 18 154/94 99 07/18/16 13:46 99.2 84 18 152/70 98 CBC/BMP: 07/18/16 0750 07/18/16 0750 Physical Exam General General Appearance: No Acute Distress, Comfortable Eyes Eye Exam: Pupils Equal, Pupils Reactive Ears & Nose Ears & Nose Exam: Nasal Mucosa [place] Throat Throat Exam: Oral Mucosa [place] & Moist Neck Neck Exam: Neck Supple, Trachea Midline Neck Remarks Firm, nontender large mandibular mass Pulmonary Resp Exam: Clear Bilaterally Cardiology CV Exam: Regular, Good Perfusion Gastrointestinal/Abdomen GI Exam: Soft, Non-Tender, Bowel Sounds Present, Non-Distended Musculoskeletal MS Exam: Joints Intact Integumentary Skin Exam: Warm, Dry Extremeties Extremities Exam: No Edema, Pedal Pulses Palpable Neurologic Neuro Exam: Alert, Awake, Speech Clear, Moving All Extremities, No Focal Deficits Psychiatric Psych Remarks demented VTE Prophylaxis VTE Prophylaxis Device: SCDs PUD Prophylasis PUD Prophylaxis: Protonix Assessment/Plan Problem List: (1) Altered mental status, unspecified (2) BRBPR (bright red blood per rectum) (3) right mandibullar mass possible osteosarcoma (4) Physical debility (5) Weight loss (6) Weakness (7) Hx of tongue cancer (8) Anorexia (9) History of colon cancer (10) Dementia (11) Constipation Assessment/Plan no blood in stool while in hospital no more diarrhea stop Flagyl appreciate GI input no work up at this time monitor HH has chronic constipation, continue with bowel regimen, has had a couple of BMs no blood noted GI recommends to pursue endoscopic workup after right mandibular mass workup completed Right mandibular mass, with prior history of tongue cancer with radiation chemotherapy 15 years ago, colon cancer 5 years ago with chemotherapy and resection Imaging studies reviewed, possible osteosarcoma appreciate oncology input-bx of mass to determine dx medical records from [place] and imaging center pending family realistic on expectations, they want diagnosis but will not put pt. through any treatment as she would not tolerate. They are concerned about her diet and agreeable to purse a peg tube if needed Continue with cautious hydration Continue with clear liquid diet Swallow evaluation and advance diet as tolerated PT/OT Okay for out of bed with assistance Fall precautions Case management consultation for discharge planning, family requesting SNF placement. They have been arranging eventual placement in dementia unit as she requires more care/supervision. SCDs for DVT prophylaxis Protonix for GI prophylaxis Overall poor prognosis, poor functional status. Not likely to tolerate any treatment continue with tx as above D/W RN D/W pt's family at length D/W Dr. Schafer This patient was seen by myself and Dr. Schafer, this note is written on her behalf Problem Qualifiers (1) Dementia: (2) Constipation: Qualified Code: K59.00 - Constipation, unspecified constipation type Pratibha Lopez Jul 19, 2016 10:21
[2016-07-19 11:28] VITALS: BP 134/70; PULSE 63; RESP 20; TEMP 97.3; O2SAT 99
[2016-07-19 12:28] LABS: FREE T4 1.22 NG/DL (0.76-1.46); TOTAL PROTEIN SPE 6.3 GM/DL (6.0-7.6)
[2016-07-19] MEDS: MUPIROCIN 2% OINT 22 GM TUBE TOPICAL SCH ×2 (14:00→22:29)
[2016-07-19 15:30] VITALS: BP 126/69; PULSE 70; RESP 20; TEMP 96.9; O2SAT 97
[2016-07-19 15:53] LABS: RAPID PLASMA REAGIN SCREEN NON-REACTIVE (NON-REACTVE)
[2016-07-19] MEDS: SODIUM CHLOR 0.9% 1000 ML INJ 1,000 ML IV SCH (16:44)
[2016-07-19 20:00] VITALS: BP 150/81; PULSE 107; RESP 18; TEMP 97.8; O2SAT 97
[2016-07-19] MEDS: traZODone HCL 50 MG TAB PO SCH (22:29)
[2016-07-19 22:35] LABS: ALBUMIN SPE 3.86 GM/DL (3.50-5.00); ALPHA 1 GLOBULIN 0.23 GM/DL (0.11-0.29); ALPHA 2 GLOBULIN 0.77 GM/DL (0.22-1.00); BETA GLOBULINS (SPE) 0.64 GM/DL (0.53-1.03)
[2016-07-20] VITALS: BP 130/58; PULSE 84; RESP 18; TEMP 97.6; O2SAT 98
[2016-07-20] MEDS: PANTOPRAZOLE SODIUM 40 MG VIAL IV PUSH SCH (03:28)
[2016-07-20 04:00] VITALS: BP 138/70; PULSE 64; RESP 17; TEMP 97.7; O2SAT 99
--- NOTE | 2016-07-20 07:45 | PD.ONC.PN ---
Subjective Subjective Remarks Patient denies complaints, CT-guided biopsy of the right-sided jaw mass was canceled due to increased risk of bleeding. This morning the patient is resting comfortably in the room. Her stepson and brother were at bedside. 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 Objective Data Date Time Temp Pulse Resp B/P Pulse Ox O2 Delivery O2 Flow Rate FiO2 07/20/16 04:00 97.7 64 17 138/70 99 07/20/16 00:00 97.6 84 18 130/58 98 07/19/16 20:00 97.8 107 18 150/81 97 07/19/16 15:30 96.9 70 20 126/69 97 07/19/16 11:28 97.3 63 20 134/70 99 07/19/16 07:50 95.7 71 20 133/79 98 Result Diagram: 07/18/16 0750 07/18/16 0750 Laboratory Results Laboratory Tests Test 07/19/16 10:51 Erythrocyte Sedimentation Rate 11 mm/hr Total Protein 6.3 GM/DL Albumin 3.86 GM/DL Albumin/Globulin Ratio 1.58 Cpnce-2-Iovromgsp 0.23 GM/DL Oeljl-0-Gxtqnxaij 0.77 GM/DL Beta Globulins 0.64 GM/DL Gamma Globulins 0.79 GM/DL Vitamin B12 Level 509 PG/ML Folate 8.5 NG/ML Free Thyroxine 1.22 NG/DL Thyroid Stimulating Hormone 3.430 uIU/ML 3rd Gen Rapid Plasma Reagin NON-REACTIVE Administered Medications Medications (Trade) Dose Ordered Sig/Amanda Route PRN Reason Start Time Stop Time Status Last Admin Dose Admin Sodium Chloride (NS 1000 ml Inj) 1,000 ml @ 50 mls/hr Q20H IV 07/17/16 03:11 07/18/16 21:53 IV Flush (NS Flush) 2 ml BID FLUSH 07/17/16 09:00 07/19/16 08:44 Pantoprazole Sodium (Protonix Inj) 40 mg Q24H IV PUSH 07/17/16 03:15 07/20/16 03:28 Polyethylene Glycol (Miralax) 17 gm DAILY PO 07/17/16 15:30 07/19/16 08:44 Trazodone HCl (Desyrel) 50 mg HS PO 07/18/16 21:00 07/19/16 22:29 Mupirocin (Bactroban 2% Oint) 1 applic Q12HR TOPICAL 07/19/16 14:00 07/19/16 22:29 Objective Remarks GENERAL PHYSICAL APPEARANCE: Ms. Valdez is an elderly female, she is laying in bed. She has soft wrist restraints on. She is playing with a doll and is cradling it in her arms as if it was her own child. She is very pleasant. She smiles. She speaks very fluently but is not oriented. HEAD, EYES, EARS, NOSE, THROAT: Head is atraumatic and normocephalic. Conjunctivae are non-pale. The sclerae are anicteric. Extraocular muscles intact. Pupils equal, round and reactive to light and accommodation. ORAL EXAM: She has a protuberance along the right cheek. She is unable to open her mouth beyond a 1 cm. On palpation of the internal surface of the right cheek, a large mass is noted. NECK EXAM: No palpable cervical or supraclavicular lymphadenopathy. RESPIRATORY EXAM: Good air movement bilaterally. No added breath sounds. CARDIOVASCULAR EXAM: Regular rate and rhythm. S1 plus S2. No obvious murmurs, rubs or gallops. ABDOMINAL EXAM: Thin belly. Soft, nontender and nondistended. No palpable organ enlargement. LOWER EXTREMITIES: No pretibial edema. No calf tenderness. REGULATOR PIN INSERTER: No focal sensory or motor deficits, though she is generally weak. MUSCULOSKELETAL: Decreased muscle mass and tone. Assessment/Plan Assessment Ms. Valdez is a 66-year-old female with advanced dementia. She presented to the hospital for further workup and evaluation of an enlarging mass involving the right side of her jaw, consequent to this she had not been able to eat and was losing weight. She is unable to express any specific complaints herself due to her neurocognitive deficits but her son and meoghork-is-hsn report that the patient has been declining steadily over the past eight weeks. Imaging studies of the patient's head indicate a large mass involving the right mandible. The radiographic findings are most consistent with a malignant neoplasm. Plan 1. 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 Unfortunately Ms. Valdez has very limited treatment options, she is a poor candidate for surgical resection, I did however explain to the patient's son and brother that if they are looking to have this addressed aggressively they wanted to be evaluated at a tertiary referral Center such as the [facility] the [facility]. Inform me that they are not looking for aggressive management rather looking for comfort care and best supportive care. Given the patient's progressive decline over the past one half years with her dementia they would like to proceed with hospice at home. I agree this would be the most appropriate approach. Hospice referral has been requested. CT guided biopsy of mass in jaw is note required given the comfort oriented goals of care. May d/c home with hospice when arrangements are made. Thank you for involving me in the care of this very pleasant lady. Haile Crump MD Jul 20, 2016 07:44
[2016-07-20 08:00] VITALS: BP 121/66; PULSE 72; RESP 16; TEMP 96.7; O2SAT 97
[2016-07-20] MEDS: POLYETHYLENE GLYCOL 17 GM PKG PO SCH (08:03)
[2016-07-20] MEDS: MUPIROCIN 2% OINT 22 GM TUBE TOPICAL SCH (08:41)
[2016-07-20] MEDS: SODIUM CHLORIDE 0.9% FLUSH 5 ML FLUSH FLUSH SCH (08:41)
[2016-07-20 11:17] LABS: MRSA PCR NEGATIVE (NEGATIVE); STAPH AUREUS PCR NEGATIVE (NEGATIVE)
[2016-07-20 12:00] VITALS: BP 115/66; PULSE 79; RESP 16; TEMP 96.5; O2SAT 96
--- NOTE | 2016-07-20 12:10 | HHI.PR ---
Subjective Subjective Remarks Pleasantly demented calm overnight unable to obtain ROS no family at bsd Review of Systems Constitutional Constitutional Remarks Unable to obtain ROS Vitals/Results Intake & Output 07/19/16 07/19/16 07/20/16 15:00 23:00 07:00 Intake Total 30 ml 1089 ml Output Total 200 ml Balance 30 ml -200 ml 1089 ml Intake Oral 30 ml IV Total 1089 ml Output Urine Total 200 ml # Voids 4 1 4 # Bowel Movements 0 Vital Signs Vital Signs Date Time Temp Pulse Resp B/P Pulse Ox O2 Delivery O2 Flow Rate FiO2 07/20/16 08:00 96.7 72 16 121/66 97 07/20/16 04:00 97.7 64 17 138/70 99 07/20/16 00:00 97.6 84 18 130/58 98 07/19/16 20:00 97.8 107 18 150/81 97 07/19/16 15:30 96.9 70 20 126/69 97 CBC/BMP: 07/18/16 0750 07/18/16 0750 Lab Results Laboratory Tests Test 07/20/16 06:40 Nasal Screen MRSA (PCR) NEGATIVE Staphylococcus aureus NEGATIVE (PCR)(LAB) Physical Exam General General Appearance: No Acute Distress, Comfortable Eyes Eye Exam: Pupils Equal, Pupils Reactive Ears & Nose Ears & Nose Exam: Nasal Mucosa [place] Throat Throat Exam: Oral Mucosa [place] & Moist Neck Neck Exam: Neck Supple, Trachea Midline Neck Remarks Firm, nontender large mandibular mass Pulmonary Resp Exam: Clear Bilaterally Cardiology CV Exam: Regular, Good Perfusion Gastrointestinal/Abdomen GI Exam: Soft, Non-Tender, Bowel Sounds Present, Non-Distended Musculoskeletal MS Exam: Joints Intact Integumentary Skin Exam: Warm, Dry Extremeties Extremities Exam: No Edema, Pedal Pulses Palpable Neurologic Neuro Exam: Alert, Awake, Speech Clear, Moving All Extremities, No Focal Deficits Psychiatric Psych Remarks demented VTE Prophylaxis VTE Prophylaxis Device: SCDs PUD Prophylasis PUD Prophylaxis: Protonix Assessment/Plan Problem List: (1) Altered mental status, unspecified (2) BRBPR (bright red blood per rectum) (3) right mandibullar mass possible osteosarcoma (4) Physical debility (5) Weight loss (6) Weakness (7) Hx of tongue cancer (8) Anorexia (9) History of colon cancer (10) Dementia (11) Constipation Assessment/Plan no blood in stool while in hospital no more diarrhea stop Flagyl appreciate GI input no work up at this time monitor HH has chronic constipation, continue with bowel regimen, has had a couple of BMs no blood noted GI recommends to pursue endoscopic workup after right mandibular mass workup completed Right mandibular mass, with prior history of tongue cancer with radiation chemotherapy 15 years ago, colon cancer 5 years ago with chemotherapy and resection Imaging studies reviewed, possible osteosarcoma appreciate oncology input-spoke to family, llimited treatment options. They have decided to forgo bx and agreeable with hospice Diet as tolerated SCDs for DVT prophylaxis Protonix for GI prophylaxis PT/OT Okay for out of bed with assistance Fall precautions Hospice consult, d/w Natalia, family has decided on home with hospice. Discharge home today F/U PCP diet regular activity as tolerated D/W RN D/W Dr. Schafer D/W Natalia This patient was seen by myself and Dr. Schafer, this note is written on her behalf Discharge Minutes: 45 Problem Qualifiers (1) Dementia: (2) Constipation: Qualified Code: K59.00 - Constipation, unspecified constipation type Pratibha Lopez Jul 20, 2016 12:10 Pratibha Lopez Jul 20, 2016 12:10
--- NOTE | 2016-07-20 12:13 | HHI.DCPOC ---
Discharge Care Plan Diagnosis: (1) Altered mental status, unspecified (2) Constipation (3) BRBPR (bright red blood per rectum) (4) Weight loss (5) Weakness (6) Hx of tongue cancer (7) Physical debility (8) right mandibullar mass possible osteosarcoma (9) Anorexia (10) Dementia (11) History of colon cancer Your Health Problems Are: Difficulty with ADL Goals to Promote Your Health * To prevent worsening of your condition and complications * To maintain your health at the optimal level Directions to Meet Your Goals Take your medications as prescribed Follow your dietary instruction Follow activity as directed Keep your appointments as scheduled Take your immunizations and boosters as scheduled If your symptoms worsen call your PCP, if no PCP go to Urgent Care Center or Emergency Room Smoking is Dangerous to Your Health. Avoid second hand smoke Call the 24-hour hour crisis hotline for domestic abuse at Pratibha Lopez [facility] Jul 20, 2016 12:12
[2016-07-20] MEDS: SODIUM CHLOR 0.9% 1000 ML INJ 1,000 ML IV SCH (12:44)
--- NOTE | 2016-07-20 14:16 | RADRPT ---
EXAM DATE/TIME: 07/19/2016 00:00 [place] COMPARISON: No previous studies available for comparison. INDICATIONS : Right mandibular mass. CONCLUSION: I. 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 He understands the issues at hand with the dementia and will discus s with his brother. I believe they will choose transitional care to hospice treatment plan.. James Roblero MD FACR on July 19, 2016 at 17:45 Board Certified Radiologist. This report was verified electronically.
[2016-07-21 17:35] LABS: ANA SCREEN NEG (NEG)
[2016-07-21 23:52] LABS: VITAMIN B6 3.4 ng/mL (2.1-21.7)
--- NOTE | 2016-08-17 22:01 | HHI.DS ---
Discharge Summary Admission Date Jul 17, 2016 at 02:10 Discharge Date: Jul 20, 2016 Admitting Diagnosis GI bleed, AMS. (1) Altered mental status, unspecified (2) BRBPR (bright red blood per rectum) (3) Weight loss (4) Weakness (5) Hx of tongue cancer (6) Physical debility (7) right mandibullar mass possible osteosarcoma (8) Constipation (9) Anorexia (10) Dementia (11) History of colon cancer Imaging Last Impressions Consultation 07/19/16 0000 Signed Impressions: Service Date/Time: Tuesday, July 19, 2016 00:00 - CONCLUSION: I. 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 He understands the issues at hand with the dementia and will discuss with his brother. I believe they will choose transitional care to hospice treatment plan.. James Roblero MD FACR Abdomen/Pelvis CT 07/17/16 0040 Signed Impressions: Service Date/Time: Sunday, July 17, 2016 00:40 - CONCLUSION: No acute CT findings in the abdomen or pelvis. Jasbir Sheikh MD Head CT 07/16/162105 Signed Impressions: Service Date/Time: Saturday, July 16, 2016 21:21 - CONCLUSION: 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 No evidence of acute infarct, hemorrhage, mass or edema. Shar Mendosa MD Chest X-Ray 07/16/162105 Signed Impressions: Service Date/Time: Saturday, July 16, 2016 21:39 - CONCLUSION: No acute disease. Shar Mendosa MD Hospital Course The patient is a 66-year-old female who presented to the ER by [facility] for acute on chronic altered mental status. 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 According to family members, the patient was found bent over at the waistline on her bed with her feet on the floor which is unusual for her. Apparently, after that she was crawling around on all fours on the ground. Family is concerned because she has been having some constipation and some blood in the stool when she has bowel movements. They have also noticed an increased swelling of the right jaw. The patient has also been having some mild weight loss over the last six months or so. They have been following with her primary care physician, Dr. Solorio, who ordered a CAT scan of the head but the family did not know of the results at this time. According to family members, the patient is not at baseline mental status and oriented to herself. No fevers, no abdominal pain were reported. WBC 6.6, hemoglobin 13, hematocrit 38.7, platelets 268,000. Sodium 138, potassium 3.6, chloride 102, BUN 6, creatinine 0.67, AST 31, ALT 29. IMAGING Chest x-ray: No acute disease. 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 No evidence of acute infarct, hemorrhage, mass or edema. Abdomen and pelvis CT: No acute findings in the abdomen or pelvis. Pt. was admitted for: (1) Altered mental status, unspecified (2) BRBPR (bright red blood per rectum) (3) right mandibullar mass possible osteosarcoma (4) Physical debility (5) Weight loss (6) Weakness (7) Hx of tongue cancer (8) Anorexia (9) History of colon cancer (10) Dementia (11) Constipation During the course of the hospitalization, the following took place: pt. admitted, GI consulted Due to complaint of diarrhea, started on Flagyl. Pt. had been on abx recently. Pt. had not bleeding while in hospital. GI evaluated, no work up recommended. HH stable. Pt. with chronic constipation, continued with bowel regimen, had a couple of BMs no blood noted GI recommended to pursue endoscopic workup after right mandibular mass workup completed Right mandibular mass, with prior history of tongue cancer with radiation chemotherapy 15 years ago, colon cancer 5 years ago with chemotherapy and resection Imaging studies reviewed, possible osteosarcoma Oncology consulted, Dr. Crump met with family, discussed at length treatment options, poss. biopsy. Initially biopsy was considered but family decided not to purse. Pt. had limited treatment options, was in poor functional status, not likely to do well with cancer treatment Diet as tolerated, swallow eval done SCDs for DVT prophylaxis Protonix for GI prophylaxis PT/OT was ordered Okay for out of bed with assistance Fall precautions instituted CM for dc planning, hospice consulted. Family decided for hospice at home. Pt. discharged home in stable condition Pt Condition on Discharge: Fair Discharge Disposition: Hospice/ Home Discharge Instructions DIET: Follow Instructions for: As Tolerated, No Restrictions Speech Therapy-Diet Recommends: Other Activities you can perform: Weight Bearing as [place] Follow up Referrals: PCP Follow-up Continued Medications: Trazodone (Trazodone) 50 Mg Tab 50 MG PO HS Control Depression #30 Ref 0 TAB Discontinued Medications: Clindamycin (Clindamycin) 300 Mg Cap 300 MG PO BID Infection Ref 0 CAP Linaclotide (Linzess) 145 Mcg Cap 145 MCG PO DAILY Ref 0 CAP Pratibha Lopez [facility] Aug 17, 2016 22:01
== END 2016-07-20 15:21 | disposition home or self-care (01) ==
LOC: NEPE 20:34 → INTOOBSV 07-17 02:10 → NEDA 07-17 02:10 → NEDH 07-17 07:39 → HOCB 07-17 13:43
PROVIDERS: ADMIT Internal Medicine; ATTEND Internal Medicine
DX: F03.90 Unspecified dementia, unspecified severity, without behavioral disturbance, psychotic disturbance, mood disturbance, and anxiety (principal); F05 Delirium due to known physiological condition; F06.8 Other specified mental disorders due to known physiological condition; K56.41 Fecal impaction; K59.09 Other constipation; R54 Age-related physical debility; F41.9 Anxiety disorder, unspecified; R41.82 Altered mental status, unspecified; G43.909 Migraine, unspecified, not intractable, without status migrainosus; R53.1 Weakness; R53.83 Other fatigue; R06.02 Shortness of breath; Z85.038 Personal history of other malignant neoplasm of large intestine; Z85.818 Personal history of malignant neoplasm of other sites of lip, oral cavity, and pharynx; Z85.810 Personal history of malignant neoplasm of tongue; Z92.21 Personal history of antineoplastic chemotherapy
CPT/HCPCS: 70450; 71010; 74177; 80048; 80053; 81001; 82140; 82550; 82552; 82607; 82746; 83921; 84165; 84207; 84425; 84439; 84443; 85025; 85027; 85610; 85652; 85730; 86038; 86592; 87640; 87641; 92526; 92610; 93005; 96360; 96361; 97110; 97163; 97167; 97530; 99285; C9113; G0378; G8987; G8988; G8996; G8997; G8998; J7030; P9612; Q9967